=== PATIENT | female | born 1985 | race Two or more races ===

== ENCOUNTER 2022-02-27 20:23 | Inpatient (IN) | payer OTHER ==
[~2022-02-27] VITALS: Ht 152.4 cm; Wt 53.5 kg
== END 2022-03-06 22:56 | disposition home or self-care (01) | DRG 603 ==
LOC: ER 20:23 → SEC-K 02-28 11:46 → MEDI 02-28 16:51
PROVIDERS: ADMIT Internal Medicine; ATTEND Internal Medicine
PROC: BQ3MY0Z Magnetic Resonance Imaging (MRI) of Left Foot using Other Contrast, Unenhanced and Enhanced (ICD-10-PCS; principal; 2022-03-03)
DX: L03.032 Cellulitis of left toe (principal); L02.612 Cutaneous abscess of left foot; R60.9 Edema, unspecified
CPT/HCPCS: 73725